=== PATIENT | female | born 1960 | race Caucasian/White ===

== ENCOUNTER → 2016-12-22 | Outpatient (CLI) | payer BC ==
[~2016-12-22] MED LIST: AMBIEN DPS10 MG PO; ASA CHILDREN'S81 MG PO; MAXZIDE-25 DPS1 TAB PO; VITAMIN D-32000 UNI1 PO
== END | disposition home or self-care (01) ==
LOC: RAD.S 15:26
DX: M25.512 Pain in left shoulder (principal); M19.011 Primary osteoarthritis, right shoulder